=== PATIENT | female | born 1960 | race Caucasian/White ===

== ENCOUNTER 2024-12-04 10:02 | Outpatient (CLI) | payer MEDICARE, OTHER ==
[2024-12-04 10:34] LABS: #Basophils 0.1 thou/uL (0.0-0.2); #Eosinophils 0.2 thou/uL (0.0-0.7); #Lymphocytes 1.6 thou/uL (1.20-3.40); #Monocytes 0.5 thou/uL (0.11-0.59); #Neutrophils 3.1 thou/uL (1.40-6.50); %Basophils 1.5 % (0.0-1.0); %Eosinophils 3.6 % (0.0-10.0); %Lymphocytes 28.9 % (21.0-51.0); %Monocytes 9.2 % (0.0-10.0); %Neutrophils 56.7 % (42.0-75.0); Hematocrit 42.5 % (36.0-47.0); Hemoglobin 13.8 g/dL (12.0-16.0); Mean Corpuscular Hemoglobin 31.5 pg (27.0-31.0); Mean Corpuscular Volume 97.0 fl (78.0-98.0); Platelet Count 253 10x3/uL (130-400); Red Blood Cell (RBC) Count 4.38 mill/uL (4.20-5.40); White Blood Cell (WBC) Count 5.5 10x3/uL (4.8-10.8)
[2024-12-04 10:48] LABS: ALT (SGPT) 18 U/L (Less than 34); AST (SGOT) 19 U/L (11-34); Albumin 4.5 g/dL (3.1-4.5); Alkaline Phosphatase 125 U/L (40-110); Anion Gap 11 mmol/L (10-20); BUN (Urea Nitrogen) 16 mg/dL (9.8-20.1); Bilirubin, Total 0.5 mg/dL (0.3-1.2); Calc. Creatinine Clearance 0 mL/min (70-130); Calcium 9.9 mg/dL (7.8-10.44); Carbon Dioxide 30 mmol/L (23-31); Chloride 105 mmol/L (98-107); Globulin 3.0 g/dL (2.4-3.5); Glucose 82 mg/dL (80-115); Potassium 3.9 mmol/L (3.5-5.1); Sodium 142 mmol/L (136-145)
[2024-12-04 17:01] LABS: Vitamin D, 25 Hydroxy 53.8 ng/ml (> 30.0)
[2024-12-04 18:30] LABS: Free T4 (Free Thyroxine) 1.02 ng/dL (0.70-1.48)
== END 2024-12-04 10:03 | disposition home or self-care (01) ==
LOC: MADLAB 10:02
PROVIDERS: ATTEND Internal Medicine Endocrinology, Diabetes & Metabolism
DX: E03.9 Hypothyroidism, unspecified (principal); N95.1 Menopausal and female climacteric states; E55.9 Vitamin D deficiency, unspecified; R53.83 Other fatigue; E27.9 Disorder of adrenal gland, unspecified
CPT/HCPCS: 36415; 80053; 82306; 82627; 84439; 84443; 84481; 85025